=== PATIENT | male | born 1960 | race Caucasian/White ===

== ENCOUNTER 2017-08-19 21:55 | Emergency (ER) | payer MEDICAID ==
--- NOTE | 2017-08-20 00:03 | EDM.PDOC ---
ED HPI GENERAL MEDICAL PROBLEM - General Chief Complaint: Neurological Problem Stated Complaint: ILLNESS Time Seen by Provider: 08/19/17 22:40 Source of Information: Reports: Patient, EMS, Family History Limitations: Reports: Altered Mental Status - History of Present Illness INITIAL COMMENTS - FREE TEXT/NARRATIVE: 56-year-old male with known melanoma of the left face, has recently been seen for metastatic disease to the brain. Over the last 5 days his family's been concerned because he is not behaving normally, isn't eating well. Patient himself has no complaints. Onset: Gradual (Over the past week since he returned from the [facility]) Severity: Moderate Associated Symptoms: Reports: Confusion. Denies: Cough, Headaches, Nausea/ Vomiting, Shortness of Breath - Related Data Allergies Allergy/AdvReac Type Severity Reaction Status Date / Time ofloxacin Allergy Rash Verified 08/19/17 22:40 Home Meds: Home Meds Dabrafenib Mesylate [Tafinlar] 150 mg PO BID 08/19/17 [History] Dexamethasone 4 mg PO BID 08/19/17 [History] Prochlorperazine [Compazine] 10 mg PO Q6H PRN 08/19/17 [History] Trametinib Dimethyl Sulfoxide [Mekinist] 2 mg PO DAILY 08/19/17 [History] levETIRAcetam [Keppra] 750 mg PO BID 08/19/17 [History] Past Medical History Respiratory History: Reports: Other (See Below) Other Respiratory History: 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 Neurological History: Reports: Seizure, Other (See Below) Other Neuro History: Brain cancerdue to metastatic malilnat melanoma Oncologic (Cancer) History: Reports: Malignant Melanoma - Infectious Disease History Infectious Disease History: Reports: Chicken Pox, Measles, Mumps - Past Surgical History HEENT Surgical History: Reports: Other (See Below) Other HEENT Surgeries/Procedures: 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 Denies: Nausea, Vomiting : Reports: No Symptoms Skin: Reports: No Symptoms Neurological: Reports: Confusion. Denies: Headache Psychiatric: Reports: No Symptoms ED EXAM, NEURO - Physical Exam Exam: See Below Exam Limited By: No Limitations General Appearance: Alert, No Apparent Distress Eye Exam: Bilateral Eye: Other (Left eye is surgically removed) Respiratory/Chest: No Respiratory Distress, Lungs Clear Cardiovascular: Regular Rate, Rhythm Neurological: Normal Mood/Affect, Oriented x 3, Other (Patient is unable to hold his right leg up against gravity) Psychiatric: Normal Affect, Normal Mood Skin Exam: Warm, Dry Course - Vital Signs Last Recorded V/S: Last Vital Signs Temp 98.6 F 08/19/17 22:05 Pulse 74 08/19/17 22:36 Resp 16 08/19/17 22:36 BP 99/71 08/19/17 23:03 Pulse Ox 95 08/19/17 23:03 - Orders/Labs/Meds Orders: Active Orders 24 hr Category Date Time Status Head wo Cont [CT] Stat Exams 08/19/17 22:51 Taken Labs: Laboratory Tests 08/19/17 08/19/17 Range/Units 23:01 23:01 WBC 5.9 (4.5-11.0) K/uL RBC 4.59 (4.30-5.90) M/uL Hgb 13.0 (12.0-15.0) g/dL Hct 39.9 L (40.0-54.0) % MCV 87 (80-98) fL MCH 28 (27-31) pg MCHC 33 (32-36) % Plt Count 304 (150-400) K/uL Neut % (Auto) 54 (36-66) % Lymph % (Auto) 26 (24-44) % [place] % (Auto) 17 H (2-6) % Eos % (Auto) 2 (2-4) % Baso % (Auto) 1 (0-1) % Sodium 142 (140-148) mmol/L Potassium 3.9 (3.6-5.2) mmol/L Chloride 104 (100-108) mmol/L Carbon Dioxide 28 (21-32) mmol/L [place] 10.4 (5.0-14.0) mmol/L BUN 16 (7-18) mg/dL Creatinine 0.9 (0.8-1.3) mg/dL Est Cr Clr Drug Dosing 70.30 mL/min Estimated GFR (MDRD) > 60 (>60) Glucose 127 H (74-106) mg/dL Calcium 9.1 (8.5-10.1) mg/dL - Re-Assessments/Exams Free Text/Narrative Re-Assessment/Exam: 08/20/17 00:34 CBC and BMP were obtained and were normal. A CT the head showed widespread metastatic disease. This was discussed with the hospitalist in [place], and the metastatic disease has been known for the past month. He is already on steroids and anti-neoplastic medications. I encouraged the family to make sure that he is taking his medications appropriately, and to call oncology in [place] on Tuesday to update on his condition and obtain further advice. 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 - My Orders Last 24 Hours: My Active Orders 08/19/17 22:51 Head wo Cont [CT] Stat - Assessment/Plan Last 24 Hours: My Active Orders 08/19/17 22:51 Head wo Cont [CT] Stat
== END 2017-08-20 01:02 | disposition home or self-care (01) ==
LOC: JP.ED 21:55
DX: C79.31 Secondary malignant neoplasm of brain (principal); C49.9 Malignant neoplasm of connective and soft tissue, unspecified; Z88.1 Allergy status to other antibiotic agents; Z79.899 Other long term (current) drug therapy; F17.210 Nicotine dependence, cigarettes, uncomplicated; Z90.01 Acquired absence of eye
CPT/HCPCS: 36415; 70450; 80048; 85025; 99284